=== PATIENT | male | born 1980 | race African-American/Black ===

== ENCOUNTER 2018-02-13 07:54 | Emergency (ER) | payer BC ==
[2018-02-13] MEDS: HYDROcodone/APAP 5/325MG 1 TAB TABLET PO (08:34)
[2018-02-13] MEDS: IBUPROFEN 800 MG TABLET. PO (08:35)
== END 2018-02-13 08:54 | disposition home or self-care (01) ==
LOC: ER 07:54
DX: S62.316A Displaced fracture of base of fifth metacarpal bone, right hand, initial encounter for closed fracture (principal); X58.XXXA Exposure to other specified factors, initial encounter; Y93.89 Activity, other specified; Y92.89 Other specified places as the place of occurrence of the external cause; Y99.8 Other external cause status
CPT/HCPCS: 29125; 73130; 99284